=== PATIENT | male | born 1990 | race American Indian/Alaskan Native ===

== ENCOUNTER 2021-11-10 13:17 | Emergency (ER) | payer SELFPAY ==
--- NOTE | 2021-11-10 14:52 | Emergency Department Report ---
- General Chief complaint: Skin/Abscess/Foreign Body Stated complaint: BUMP ON HEAD ACHING PAINFUL Source: patient Mode of arrival: Ambulatory Limitations: No Limitations - History of Present Illness Initial comments: 30-year-old male presents to the ER today with complaints of a tender swollen area to his superior occipital scalp.. He states that he has had a swollen area there for a few months, but in the past month has been getting bigger and more painful. He states that when meeting coming today is because it has been throbbing, and this caused him to have a headache and feel dizzy. He denies any injury to the area. He denies any drainage from the area. He denies any insect bites. He denies any fever or chills. He denies similar symptoms in the past. MD complaint: other (swollen tender area to scalp ) -: month(s) - Related Data Previous Rx's Medication Instructions Recorded Last Taken Type Ibuprofen [Motrin] 600 mg PO Q8H PRN #30 tablet 11/10/21 Unknown Rx Sulfamethoxazole/Trimethoprim 1 each PO BID #14 tablet 11/10/21 Unknown Rx [Bactrim DS TAB] Allergies Allergy/AdvReac Type Severity Reaction Status Date / Time No Known Allergies Allergy Verified 07/11/14 15:30 Abscess Boil HPI - HPI Chief Complaint: Skin/Abscess/Foreign Body Stated Complaint: BUMP ON HEAD ACHING PAINFUL Home Medications: Previous Rx's Medication Instructions Recorded Last Taken Type Ibuprofen [Motrin] 600 mg PO Q8H PRN #30 tablet 11/10/21 Unknown Rx Sulfamethoxazole/Trimethoprim 1 each PO BID #14 tablet 11/10/21 Unknown Rx [Bactrim DS TAB] Allergies/Adverse Reactions: Allergies Allergy/AdvReac Type Severity Reaction Status Date / Time No Known Allergies Allergy Verified 07/11/14 15:30 ED Review of Systems ROS: Stated complaint: BUMP ON HEAD ACHING PAINFUL Other details as noted in HPI Comment: All other systems reviewed and negative Constitutional: denies: chills, fever Eyes: denies: eye pain, eye discharge, vision change ENT: denies: ear pain, throat pain, dental pain, hearing loss, epistaxis, congestion Respiratory: denies: cough, shortness of breath, SOB with exertion, SOB at rest, wheezing Cardiovascular: denies: chest pain, palpitations Gastrointestinal: denies: abdominal pain, nausea, vomiting, diarrhea, constipation, hematemesis, melena, hematochezia Genitourinary: denies: urgency, dysuria, frequency, hematuria, discharge, testicular pain, testicular mass Skin: lesions, other Neurological: headache. denies: weakness, numbness, paresthesias, confusion Psychiatric: denies: anxiety, depression, auditory hallucinations, visual hallucinations, homicidal thoughts, suicidal thoughts Hematological/Lymphatic: denies: easy bleeding, easy bruising, swollen glands ED Past Medical Hx - Surgical History Additional Surgical History: facial surgery as a child - Social History Smoking Status: Current Every Day Smoker - Medications Home Medications: Home Medications Medication Instructions Recorded Confirmed Last Taken Type Ibuprofen [Motrin] 600 mg PO Q8H PRN #30 tablet 11/10/21 Unknown Rx Sulfamethoxazole/Trimethoprim 1 each PO BID #14 tablet 11/10/21 Unknown Rx [Bactrim DS TAB] ED Physical Exam - General Limitations: No Limitations General appearance: alert, in no apparent distress - Head Head exam: Present: atraumatic, normocephalic, other (Approximately 3 cm x 2 cm indurated, cystic area noted to the superior aspect of the occipital scalp with some mild tenderness to palpation. No apparent cellulitis. No fluctuance. No significant lymphangitis.) - Eye Eye exam: Present: normal appearance, PERRL, EOMI Pupils: Present: normal accommodation - Respiratory Respiratory exam: Absent: respiratory distress - Cardiovascular Cardiovascular Exam: Present: regular rate - Neurological Exam Neurological exam: Present: alert, oriented X3, CN II-XII intact, normal gait - Psychiatric Psychiatric exam: Present: normal affect, normal mood ED Course Vital Signs 11/10/21 13:22 Temperature 97.6 F Pulse Rate 59 L Respiratory 18 Rate Blood Pressure 122/65 O2 Sat by Pulse 100 Oximetry Critical care attestation.: If time is entered above; I have spent that time in minutes in the direct care of this critically ill patient, excluding procedure time. ED Disposition Clinical Impression: Sebaceous cyst Disposition: HOME / SELF CARE / HOMELESS Is pt being admited?: No Does the pt Need Aspirin: No Condition: Stable Instructions: Epidermal Cyst, [id number] Additional Instructions: I recommend taking the bactrim as prescribed and to completion. Take the motrin as prescribed for pain and swelling. Follow up with General surgeon listed on your d/c instructions. Return to ED if symptoms worsens in anyway. Prescriptions: Sulfamethoxazole/Trimethoprim [Bactrim DS TAB] 1 each PO BID #14 tablet Ibuprofen [Motrin] 600 mg PO Q8H PRN #30 tablet PRN Reason: Pain Referrals: APOLLO WAN MD [Staff Physician] - 3-5 Days Time of Disposition: 14:54
[2021-11-10 15:32] VITALS: BP 122/69
== END 2021-11-10 15:31 | disposition home or self-care (01) ==
LOC: ED 13:17
DX: L72.3 Sebaceous cyst (principal); F17.200 Nicotine dependence, unspecified, uncomplicated; Z79.899 Other long term (current) drug therapy
CPT/HCPCS: 99282